=== PATIENT | male | born 1975 | race Caucasian/White ===

== ENCOUNTER 2016-11-09 17:12 | Emergency (ER) | payer BC, OTHER ==
[2016-11-09] MEDS ORDERED: DEXAMETHASONE 10 MG/ML VIAL PO STA (18:26)
[2016-11-09] MEDS ORDERED: DEXAMETHASONE 10 MG/ML VIAL ONE (18:30)
== END 2016-11-09 19:19 | disposition home or self-care (01) ==
DX: J02.9 Acute pharyngitis, unspecified (principal); J06.9 Acute upper respiratory infection, unspecified; B97.89 Other viral agents as the cause of diseases classified elsewhere

== ENCOUNTER 2017-07-25 15:07 | Outpatient (CLI) | payer BC ==
[2017-07-25 13:24] LABS: H. PYLORI IGG ANTIBODY Negative (Negative); HPYLORI NEG QC Negative (Negative); HPYLORI POS QC POSITIVE (Positive)
[2017-07-25 14:28] LABS: ALBUMIN/GLOBULIN RATIO 1.3 (1.0-2.2); BILIRUBIN,TOTAL 0.6 mg/dL (0.2-1.0); CALCIUM 9.1 mg/dL (8.5-10.3); CREATININE 0.8 mg/dL (0.6-1.2); TOTAL PROTEIN 7.5 g/dL (6.7-8.2)
== END 2017-07-25 15:08 | disposition home or self-care (01) ==
LOC: LAB.WCP 15:07
PROVIDERS: ATTEND Family Medicine
DX: R10.9 Unspecified abdominal pain (principal)
CPT/HCPCS: 36415; 80053; 83690; 87339

== ENCOUNTER 2017-08-02 10:22 | Outpatient (CLI) | payer BC | END 2017-08-02 10:23 | disposition home or self-care (01) | LOC: LAB.WCP 10:22 | PROVIDERS: ATTEND Family Medicine | DX: R10.9 Unspecified abdominal pain (principal) | CPT/HCPCS: 36415; 80074 ==

== ENCOUNTER 2017-08-06 14:50 | Outpatient (CLI) | payer BC ==
[2017-08-06 19:16] LABS: BASOPHILS % (AUTO) 0.6 %; EOSINOPHILS # (AUTO) 0.1 10^3/uL (0.0-0.7); HCT - HEMATOCRIT 41.8 % (42.0-52.0); LYMPHOCYTES # (AUTO) 1.8 10^3/uL (1.5-3.5); LYMPHOCYTES % (AUTO) 28.9 %; MEAN CORPUSCULAR HEMOGLOBIN 29.5 pg (27.0-31.0); MEAN CORPUSCULAR HGB CONC 33.6 g/dL (32.0-36.0); MEAN CORPUSCULAR VOLUME 87.9 fL (80.0-94.0); MEAN PLATELET VOLUME 8.6 fL (7.4-11.4); MONOCYTES # (AUTO) 0.6 10^3/uL (0.0-1.0); MONOCYTES % (AUTO) 9.5 %; NEUTROPHILS # (AUTO) 3.7 10^3/uL (1.5-6.6); NUCLEATED RED BLOOD CELLS AUTO 0.1 /100WBC; RED BLOOD COUNT 4.76 10^6/uL (4.70-6.10); RED CELL DISTRIBUTION WIDTH 14.3 % (12.0-15.0); UNCORRECTED WHITE BLOOD COUNT 6.3 x10^3/uL; WHITE BLOOD COUNT 6.3 x10^3/uL (4.8-10.8)
[2017-08-06 19:35] LABS: THYROID STIMULATING HORMONE 1.21 uIU/mL (0.34-5.60)
[2017-08-06 19:46] LABS: FOLATE 20.03 ng/mL (5.90 - >24.8)
== END 2017-08-06 14:51 | disposition home or self-care (01) ==
LOC: LAB.WCP 14:50
PROVIDERS: ATTEND Family Medicine
DX: R10.13 Epigastric pain (principal)
CPT/HCPCS: 36415; 82607; 82746; 83630; 84443; 85025; 87045; 87046; 87493

== ENCOUNTER 2021-04-18 08:00 | Outpatient (CLI) | payer BC ==
[2021-04-18 17:56] LABS: BASOPHILS % (AUTO) 0.5 %; EOSINOPHILS # (AUTO) 0.1 10^3/uL (0.0-0.7); EOSINOPHILS % (AUTO) 1.5 %; HCT - HEMATOCRIT 44.5 % (42.0-52.0); HGB - HEMOGLOBIN 14.4 g/dL (14.0-18.0); LYMPHOCYTES # (AUTO) 2.8 10^3/uL (1.5-3.5); MEAN CORPUSCULAR HEMOGLOBIN 29.1 pg (27.0-31.0); MEAN CORPUSCULAR HGB CONC 32.4 g/dL (32.0-36.0); MEAN CORPUSCULAR VOLUME 90.1 fL (80.0-94.0); MEAN PLATELET VOLUME 10.5 fL (7.4-11.4); MONOCYTES # (AUTO) 0.6 10^3/uL (0.0-1.0); NEUTROPHILS # (AUTO) 4.2 10^3/uL (1.5-6.6); NEUTROPHILS % (AUTO) 53.7 %; PLT - PLATELET COUNT 233 10^3/uL (130-450); RED BLOOD COUNT 4.94 10^6/uL (4.70-6.10); RED CELL DISTRIBUTION WIDTH 14.5 % (12.0-15.0); WHITE BLOOD COUNT 7.9 x10^3/uL (4.8-10.8)
[2021-04-18 18:27] LABS: THYROID STIMULATING HORMONE 1.95 uIU/mL (0.34-5.60)
[2021-04-18 18:42] LABS: ALBUMIN 4.2 g/dL (3.2-5.5); ALBUMIN/GLOBULIN RATIO 1.4 (1.0-2.2); ALKALINE PHOSPHATASE 47 IU/L (42-121); ALT ALANINE AMINOTRANSFERASE 27 IU/L (10-60); AST ASPARTATE AMINOTRANSFERASE 20 IU/L (10-42); BILIRUBIN,TOTAL 0.8 mg/dL (0.2-1.0); BUN - BLOOD UREA NITROGEN 15 mg/dL (6-20); CALCIUM 9.1 mg/dL (8.5-10.3); CARBON DIOXIDE - CO2 26 mmol/L (21-32); CHLORIDE 102 mmol/L (101-111); CHOL/HDL RATIO 2.5 (<5.0); CHOLESTEROL 191 mg/dL; CREATININE 0.7 mg/dL (0.6-1.2); GFR - MDRD 120 (>89); GLUCOSE 105 mg/dL (70-100); HDL CHOLESTEROL 75 mg/dL; LDL CHOLESTEROL,CALCULATED 91 mg/dL; LDL/HDL RATIO 1.2 (<3.6); POTASSIUM 3.9 mmol/L (3.5-5.0); SODIUM 137 mmol/L (135-145); TOTAL PROTEIN 7.2 g/dL (6.7-8.2); TRIGLYCERIDES 127 mg/dL; VLDL CHOLESTEROL 25 mg/dL
[2021-04-18 20:54] LABS: ESTIMATED AVERAGE GLUCOSE 114 mg/dL (70-100); HEMOGLOBIN A1c% 5.6 % (4.27-6.07)
== END 2021-04-18 08:01 | disposition home or self-care (01) ==
LOC: LAB.WCP 08:00
PROVIDERS: ATTEND Internal Medicine
DX: I10 Essential (primary) hypertension (principal); E66.01 Morbid (severe) obesity due to excess calories
CPT/HCPCS: 36415; 80053; 80061; 83036; 83721; 84443; 85025

== ENCOUNTER 2022-02-16 16:18 | Emergency (ER) | payer SELFPAY ==
[2022-02-16] MEDS ORDERED: LIDOCAINE 1%-EPI 1:100000 20 ML MDV SUBQ STA (16:48)
[2022-02-16] MEDS ORDERED: SODIUM CHLORIDE 0.9% 1,000 ML IV STA (17:49)
[2022-02-16] MEDS ORDERED: CLINDAMYCIN 900 MG/50 ML 50 ML IV ONE (17:50)
--- NOTE | 2022-02-16 17:52 | ED Physician Documentation ---
PD HPI WOUND RECHECK - Stated complaint Stated Complaint: R SIDE ABCESS - Chief complaint Chief Complaint: Wound - Histroy obtained from History obtained from: Patient, Family - Additional information Additional information: 46-year-old gentleman with history of hypertension and morbid obesity presents for the evaluation of an abscess on the right side of his chest wall. Started about 3 days ago with relatively rapid growth. No fevers. Pain is significant. Last p.o. intake 1:30 PM today. Review of Systems Ten Systems: 10 systems reviewed and negative Constitutional: denies: Fever, Chills, Myalgias Cardiac: denies: Palpitations Respiratory: denies: Dyspnea, Cough PD PAST MEDICAL HISTORY - Past Medical History Past Medical History: Yes Cardiovascular: Hypertension - Past Surgical History Past Surgical History: No - Present Medications Home Medications: Ambulatory Orders Medication Instructions Recorded Confirmed Cetirizine HCl/Pseudoephedrine 1 each PO BID PRN #30 tab.er.12h 11/09/16 [Zyrtec-D Tablet] Ibuprofen 800 mg PO TID 11/09/16 11/09/16 Ibuprofen [Motrin] 800 mg PO Q8H PRN #30 tablet 11/09/16 - Allergies Allergies/Adverse Reactions: Allergies Allergy/AdvReac Type Severity Reaction Status Date / Time No Known Drug Allergies Allergy Verified 02/16/22 16:40 - Social History Does the pt smoke?: No Smoking Status: Never smoker PD ED PE NORMAL - Vitals Vital signs reviewed: Yes - General General: Alert and oriented X 3, Other - HEENT HEENT: PERRL, EOMI, Pharynx benign - Neck Neck: Supple, no meningeal sign, No bony TTP - Cardiac Cardiac: RRR, No murmur - Respiratory Respiratory: No respiratory distress, Clear bilaterally - Abdomen Abdomen: Normal bowel sounds, Soft, Non tender - Back Back: No CVA TTP, No spinal TTP - Derm Derm: Other (V large (10+ cm R mid chest wall abscess) w cellulitis) - Neuro Neuro: Alert and oriented X 3, Normal speech Results - Vitals Vitals: Vital Signs - 24 hr 02/16/22 02/16/22 02/16/22 16:37 19:27 20:30 Temperature 36.4 C L Heart Rate 108 H 95 87 Respiratory 20 17 Rate Blood Pressure 124/70 O2 Saturation 93 97 Oxygen O2 Source Room air - Labs Labs: Microbiology 02/16/22 19:00 Wound Culture - Preliminary Abscess Laboratory Tests 02/16/22 02/16/22 02/16/22 18:05 18:05 19:10 WBC 11.7 H RBC 4.89 Hgb 14.7 Hct 43.9 MCV 89.8 MCH 30.1 MCHC 33.5 RDW 13.7 Plt Count 242 MPV 9.5 Neut # (Auto) 8.3 H Lymph # (Auto) 2.4 Craig # (Auto) 0.8 Eos # (Auto) 0.1 Baso # (Auto) 0.1 Absolute Nucleated RBC 0.00 Nucleated RBC % 0.0 Sodium 137 Potassium 4.3 Chloride 100 L Carbon Dioxide 26 Anion Gap 11.0 BUN 16 Creatinine 0.9 Estimated GFR (MDRD) 90 Glucose 109 H Lactic Acid 0.9 Calcium 9.5 SARS-CoV-2 (PCR) 02/16/22 19:24 WBC RBC Hgb Hct MCV MCH MCHC RDW Plt Count MPV Neut # (Auto) Lymph # (Auto) Craig # (Auto) Eos # (Auto) Baso # (Auto) Absolute Nucleated RBC Nucleated RBC % Sodium Potassium Chloride Carbon Dioxide Anion Gap BUN Creatinine Estimated GFR (MDRD) Glucose Lactic Acid Calcium SARS-CoV-2 (PCR) NOT DETECTED - Rads (name of study) CT of the chest with IV contrast Radiology: EMP read contemporaneously (Very limited study demonstrating partial inclusion of right chest wall abscess fluid and gas) Procedures - Abscess I&D (location) Right chest wall Preparation: Lidocaine 1%, With epi Incision: Incised with scalpel, Purulent drainage, Loculations broken, Culture obtained Other: Pt tolerated well, Dressing applied, Antibiotic prescribed PD MEDICAL DECISION MAKING - ED course ED course: 46-year-old gentleman with morbid obesity and hypertension presents with a right chest wall infection with significant cellulitis. He is afebrile and well- appearing. Given his size, [employer] came down and did a procedural sedation while I did an I&D. Noting that the operating room here is closed due to staffing issues for the next few days. On probing, the abscess was too deep to get to the bottom of it with hemostats or the culture swab, suggesting an abscess cavity at least 10 cm. There was no resistance to probing with this. This is concerning for a necrotizing soft tissue infection. He had already received some IV clindamycin at this point but antibiotic choice was broadened for NSTI and added Zosyn and vancomycin and will be sent for a CT of the chest. The CT of the chest to my eye is quite limited given his size but in the interim I did speak with the general surgeon at [place], Dr. Lamb and subsequently ED attending Dr. Edyta Mars who accept him via the [place] ED for further evaluation and treatment. Departure - Departure Disposition: 02 Transfer Acute Care Hosp Clinical Impression: Chest wall abscess, Morbid obesity with BMI of 60.0-69.9, adult Condition: Serious
[2022-02-16 18:10] LABS: BASOPHILS # (AUTO) 0.1 10^3/uL (0.0-0.1); BASOPHILS % (AUTO) 0.4 %; EOSINOPHILS # (AUTO) 0.1 10^3/uL (0.0-0.7); EOSINOPHILS % (AUTO) 0.5 %; HCT - HEMATOCRIT 43.9 % (42.0-52.0); HGB - HEMOGLOBIN 14.7 g/dL (14.0-18.0); LYMPHOCYTES # (AUTO) 2.4 10^3/uL (1.5-3.5); LYMPHOCYTES % (AUTO) 20.3 %; MEAN CORPUSCULAR HEMOGLOBIN 30.1 pg (27.0-31.0); MEAN CORPUSCULAR HGB CONC 33.5 g/dL (32.0-36.0); MEAN CORPUSCULAR VOLUME 89.8 fL (80.0-94.0); MEAN PLATELET VOLUME 9.5 fL (7.4-11.4); MONOCYTES # (AUTO) 0.8 10^3/uL (0.0-1.0); MONOCYTES % (AUTO) 7.2 %; NEUTROPHILS # (AUTO) 8.3 10^3/uL (1.5-6.6); PLT - PLATELET COUNT 242 10^3/uL (130-450); RED BLOOD COUNT 4.89 10^6/uL (4.70-6.10); RED CELL DISTRIBUTION WIDTH 13.7 % (12.0-15.0); WHITE BLOOD COUNT 11.7 x10^3/uL (4.8-10.8)
[2022-02-16 18:19] LABS: CALCIUM 9.5 mg/dL (8.5-10.3); CREATININE 0.9 mg/dL (0.6-1.2); POTASSIUM 4.3 mmol/L (3.5-5.0)
[2022-02-16] MEDS ORDERED: MIDAZOLAM 2 MG/2 ML VIAL ONE (18:35)
[2022-02-16] MEDS ORDERED: KETAMINE 500 MG/10 ML VIAL ONE (18:36)
[2022-02-16] MEDS ORDERED: SODIUM CHLORIDE 0.9% 10 ML VIAL IVP ONE (18:36)
[2022-02-16] MEDS ORDERED: GLYCOPYRROLATE 1 MG/5 ML VIAL ONE (18:36)
[2022-02-16] MEDS ORDERED: PIPERACILLIN/TAZOBACTAM 4.5 GM in SODIUM CHLORIDE 0.9% MINIBAG 100 ML IV STA (18:57)
[2022-02-16] MEDS ORDERED: VANCOMYCIN INJ 2 GM in SODIUM CHLORIDE 0.9% 500 ML IV STA (18:57)
--- NOTE | 2022-02-16 19:14 | ANESTHESIA PROCEDURE NOTE ---
Diagnosis: R chest wall abcess Procedure: R chest wall abcess drainage under MAC local Consent for Procedure(s) Verified and Reviewed: Yes Height and Weight: Height 5 ft 11 in Weight (kg) 224.075 kg Body Mass Index 68.8 Vital Signs: Temp Pulse Resp BP Pulse Ox 36.4 C L 108 H 20 124/70 93 02/16/22 16:37 02/16/22 16:37 02/16/22 16:37 02/16/22 16:37 02/16/22 16:37 Allergies No Known Drug Allergies Allergy (Verified 02/16/22 16:40) Requesting Provider: Alessio Location: ER bed7 ASA classification: 3-Severe systemic disease Is this case an emergency?: Yes Anes. Monitoring and Equipment: Non-invasive BP, Pulse oximetery Anes. Procedure Start Time: 18:40 Anes. Procedure Stop Time: 18:55 Procedure Notes: Pt to sitting with HOB 45 degrees. O2 mask with ETCO2 applied. VSS, pulse ox 3 lead tele. Versed 2mg. IV infiltration@L AC. New IV placed at R wrist. 0.4mg Glycopyrulate IV, Ketamine 40 mg. Procedure start. Additional Ketamine dose of 20mg IV x2 given for remainder of I&D. Pt tolerated procedure. Alert to place, time, and situation at end anesthesia.
[2022-02-16] MEDS ORDERED: IOPAMIDOL-300 100 ML VIAL ONE (19:20)
[2022-02-16] MEDS ORDERED: VANCOMYCIN 1 GM VIAL ONE (19:26)
[2022-02-16] MEDS ORDERED: IOPAMIDOL-300 100 ML VIAL IVP ONE (20:31)
--- NOTE | 2022-02-16 20:51 | CT Report ---
PROCEDURE: CHEST W INDICATIONS: R chest wall infection, eval NSTI CONTRAST: IV CONTRAST: Isovue 300 ml: 100 PO CONTRAST: *NO PO CONTRAST TECHNIQUE: After the administration of intravenous contrast, 1 mm axial images were acquired from the pulmonary apices through the posterior costophrenic angles. Axial 5 mm soft tissue kernel reconstructions were performed as well as 8 mm axial MIP and coronal and sagittal 5 mm reformations. For radiation dose reduction, the following was used: automated exposure control, adjustment of mA and/or kV according to patient size. COMPARISON: None. FINDINGS: Image quality: Evaluation limited by body habitus. Lungs and pleura: There is mild dependent atelectasis. No acute consolidation. No pleural effusions o r pneumothorax. The trachea and central airways appear patent. Mediastinum: Heart size is normal. No pericardial effusion. No mediastinal or hilar adenopathy by size criteria. Thoracic aorta and central pulmonary arteries are normal in size. Esophagus is tamie l in caliber. No hiatal hernia. Bones and chest wall: The left chest is incompletely included on the current study due to body habit us. The far lateral right chest wall was also not fully included. There is subcutaneous fat stranding and skin thickening partially visualized far laterally in the right chest wall with a loculated curv ilinear subcutaneous collection containing gas and fluid partially visualized. The collection measure s approximately 3.2 x 1.1 x 0.8 cm where visualized. No suspicious bony lesions. No vertebral body compression fractures. No axillary or supraclavicular adenopathy by size criteria. The thyroid demonstrates no discrete nodules. Abdomen: Visualized upper abdominal solid organs appear normal. Upper abdominal bowel loops are nor mal in caliber. IMPRESSION: 1. Limited study due to patient's body habitus with incomplete inclusion of the chest wall. The right chest wall demonstrates subcutaneous fat stranding and skin thickening laterally likely correspondin g to patient's reported history of chest wall infection. A small curvilinear subcutaneous collection containing fluid and gas is partially visualized consistent with a small abscess. 2. No acute consolidation or other evidence of pneumonia in the lungs. Reviewed by: Donte Hankins MD on 02/16/2022 8:49 PM PDT Approved by: Donte Hankins MD on 02/16/2022 8:49 PM PDT Station ID: [id number]
[2022-02-16] MEDS ORDERED: MORPHINE 2 MG/ML CARPUJECT IVP PRN (21:55)
[2022-02-16] MEDS ORDERED: HYDROmorphone 1 MG/ML CARPUJECT IVP STA (21:56)
[2022-02-16 21:58] VITALS: BP 139/67
[2022-02-16] MEDS ORDERED: DEXTROSE 5%-LACTATED RINGERS 1,000 ML IV SCH (22:00)
[2022-02-17] MEDS ORDERED: PANTOPRAZOLE 40 MG VIAL IVP SCH (09:00)
== END 2022-02-16 23:13 | disposition short-term general hospital (02) ==
LOC: ED 16:18
DX: L02.213 Cutaneous abscess of chest wall (principal); E66.01 Morbid (severe) obesity due to excess calories; Z68.44 Body mass index [BMI] 60.0-69.9, adult; I10 Essential (primary) hypertension
CPT/HCPCS: 10060; 36415; 71260; 80048; 83605; 85025; 87040; 87070; 87205; 87635; 96365; 96366; 96368; 96375; 99284; 99285; J1170; J3370; Q9967

== ENCOUNTER 2023-01-10 13:47 | Emergency (ER) | payer MEDICAID ==
--- NOTE | 2023-01-10 13:58 | ED Physician Documentation ---
PD HPI HEENT - Stated complaint Stated Complaint: SOA, DIZZINESS - Chief complaint Chief Complaint: Resp - History obtained from History obtained from: Patient - History of Present Illness Timing - onset: How many weeks ago (several) Timing - duration: Weeks Location: Sinuses, Throat, Other (cough and wheezing/dyspnea.) Improves: No: Medication (OTC cough meds) Associated symptoms: Congestion, Headache (frontal), Cough. No: Fever, Unable to swallow Similar symptoms before: Has not had sx before, Other (he and spouse with smilar symptoms for few weeks. They are concerned about black mold growing on buck/ceiling corners. Had landlord look at it. They heat with electric b aseboard, without any CO exposures at home.) Review of Systems Constitutional: denies: Fever, Chills Nose: reports: Rhinorrhea / runny nose, Sinus pressure / pain Throat: denies: Swollen tonsils Cardiac: denies: Chest pain / pressure, Palpitations, Pedal edema, Calf pain Respiratory: reports: Dyspnea, Cough, Wheezing Skin: reports: Rash (some hypekeratotic skin behind ears and on eyebrows.). denies: Lesions PD PAST MEDICAL HISTORY - Past Medical History Cardiovascular: Hypertension Endocrine/Autoimmune: None HEENT: None - Past Surgical History Past Surgical History: No - Present Medications Home Medications: Ambulatory Orders Medication Instructions Recorded Confirmed Cetirizine HCl/Pseudoephedrine 1 each PO BID PRN #30 tab.er.12h 11/09/16 [Zyrtec-D Tablet] Ibuprofen 800 mg PO TID 11/09/16 11/09/16 Ibuprofen [Motrin] 800 mg PO Q8H PRN #30 tablet 11/09/16 Albuterol Sulf [Ventolin Hfa 3 puffs INH QID 10 Days #1 each 01/10/23 Inhaler] Amoxicillin 500 mg PO TID #21 cap 01/10/23 Cetirizine [ZyrTEC] 10 mg PO BID #20 tablet 01/10/23 dexAMETHasone [Decadron] 4 mg PO DAILY #5 tablet 01/10/23 - Allergies Allergies/Adverse Reactions: Allergies Allergy/AdvReac Type Severity Reaction Status Date / Time No Known Drug Allergies Allergy Verified 01/10/23 13:51 - Social History Does the pt smoke?: No Smoking Status: Never smoker PD ED PE NORMAL - Vitals Vital signs reviewed: Yes - General General: Alert and oriented X 3, Well developed/nourished - HEENT HEENT: Ears normal (TMs anyway. There is some scaly white skin in creases behind ears c/w eczema type condition. ), Moist mucous membranes, Pharynx benign - Neck Neck: Supple, no meningeal sign, No adenopathy - Cardiac Cardiac: RRR, No murmur - Respiratory Respiratory: Clear bilaterally - Derm Derm: Normal color, Warm and dry Results - Vitals Vitals: Vital Signs - 24 hr 01/10/23 01/10/23 01/10/23 13:51 14:58 15:49 Temperature 36.5 C Heart Rate 114 H 78 98 Respiratory 24 17 24 Rate Blood Pressure 170/80 H 125/74 O2 Saturation 96 95 Oxygen O2 Source Room air - Rads (name of study) chest xray Relevant Findings:: Prelim report reviewed, EMP independent interpretation of test (no infiltrates nor acute process), See rad report PD Medical Decision Making - ED course Complexity details: considered differential (he and his spouse are concerned about "black mold" growing in their house, and is seen on buck/etc. I told him that I am not aware of valid blood tests to evaluate for mold toxicity. It sound s like he has viral type URI and probably now some sinusitis with it. ), d/w patient Departure - Departure Disposition: 01 Home, Self Care Clinical Impression: Dyspnea, Wheezing, Sinus congestion Condition: Stable Record reviewed to determine appropriate education?: Yes Instructions: ED Dyspnea Shortness of Breath Follow-Up: Zeb Us MD [Primary Care Provider] - Prescriptions: Amoxicillin 500 mg PO TID #21 cap dexAMETHasone [Decadron] 4 mg PO DAILY #5 tablet Albuterol Sulf [Ventolin Hfa Inhaler] 3 puffs INH QID 10 Days #1 each Cetirizine [ZyrTEC] 10 mg PO BID #20 tablet Comments: Your chest x-ray is clear without any signs of pneumonia. It does sound likely that you are having allergic or irritated response to your environment with the cough, wheezing, congestion and some scaly skin in areas. By your description, there may be some infectious component to the bronchioles or sinuses as well. I would treat these with albuterol inhaler 2 to 3 puffs 4 times daily regularly for the next 7 to 10 days. Also Decadron steroid anti-inflammatory for the bronchioles and sinuses daily for 5 more days. For potential bacterial and component, amoxicillin 3 times daily for a week. Otherwise antihistamine of cetirizine can help with some of the environmental sensitivity. You will need to be in contact with your landlord regarding the mold in the house etc. I really do not have any authority over that type of situation. I sent your prescriptions to [facility] pharmacy. Discharge Date/Time: 01/10/23 15:49
[2023-01-10] MEDS ORDERED: ALBUTEROL NEB 2.5 MG/3 ML INH STA (14:15)
[2023-01-10] MEDS ORDERED: CHERRY SYRUP 10 ML UDC PO ONE (14:17)
[2023-01-10] MEDS ORDERED: DEXAMETHASONE 10 MG/ML VIAL PO STA (14:17)
--- NOTE | 2023-01-10 14:58 | XRAY Report ---
PROCEDURE: Chest 1 View X-Ray INDICATIONS: cough and dyspnea TECHNIQUE: One view of the chest was acquired. COMPARISON: Chest CT 02/16/2022, chest x-ray 11/09/2016 FINDINGS: Surgical changes and devices: None. Lungs and pleura: No pleural effusions or pneumothorax. Lungs are clear. Mediastinum: Mediastinal contours appear normal. Heart size is enlarged. Bones and chest wall: No suspicious bony lesions. Overlying soft tissues appear unremarkable. IMPRESSION: No acute pulmonary process. Reviewed by: Aurora Chaidez MD on 01/10/2023 2:57 PM PDT Approved by: Aurora Chaidez MD on 01/10/2023 2:57 PM PDT Station ID: [id number]
[2023-01-10] MEDS ORDERED: AMOXICILLIN 250 MG CAPSULE PO STA (15:15)
[2023-01-10 15:50] VITALS: BP 125/74
== END 2023-01-10 15:49 | disposition home or self-care (01) ==
LOC: ED 13:47
DX: R06.2 Wheezing (principal); R06.00 Dyspnea, unspecified; R09.81 Nasal congestion; I10 Essential (primary) hypertension
CPT/HCPCS: 71045; 94640; 99283; 99284; A9270

== ENCOUNTER 2023-03-22 09:00 | Outpatient (CLI) | payer MEDICAID ==
--- NOTE | 2023-03-22 12:09 | XRAY Report ---
PROCEDURE: Tib/Fib RT, x-ray INDICATIONS: CONTUSION OF THE RIGHT LOWER LEG TECHNIQUE: 2 views of the tibia and fibula were acquired. COMPARISON: None. FINDINGS: Bones: No fractures or dislocations. No suspicious bony lesions. Degenerative arthritic changes n oted at the knee with marginal osteophytes Soft tissues: No suspicious soft tissue calcifications or masses. IMPRESSION: Degenerative osteoarthritis of the knee. No fracture or subluxation. Reviewed by: Andre Reynolds MD on 03/22/2023 11:08 AM MARIE Approved by: Andre Reynolds MD on 03/22/2023 11:08 AM MARIE Station ID: [id number]
== END 2023-03-22 09:15 | disposition home or self-care (01) ==
LOC: DI.N 09:00
PROVIDERS: ATTEND Family Medicine
DX: M17.11 Unilateral primary osteoarthritis, right knee (principal); S80.11XA Contusion of right lower leg, initial encounter

== ENCOUNTER 2023-03-22 10:05 | Outpatient (CLI) | payer MEDICAID ==
[2023-03-22 17:37] LABS: BASOPHILS # (AUTO) 0.1 10^3/uL (0.0-0.1); BASOPHILS % (AUTO) 0.6 %; EOSINOPHILS # (AUTO) 0.1 10^3/uL (0.0-0.7); EOSINOPHILS % (AUTO) 1.4 %; HGB - HEMOGLOBIN 13.8 g/dL (14.0-18.0); LYMPHOCYTES # (AUTO) 2.2 10^3/uL (1.5-3.5); LYMPHOCYTES % (AUTO) 25.1 %; MEAN CORPUSCULAR HEMOGLOBIN 29.1 pg (27.0-31.0); MEAN CORPUSCULAR HGB CONC 31.4 g/dL (32.0-36.0); MEAN CORPUSCULAR VOLUME 92.8 fL (80.0-94.0); MEAN PLATELET VOLUME 10.3 fL (7.4-11.4); MONOCYTES # (AUTO) 0.5 10^3/uL (0.0-1.0); MONOCYTES % (AUTO) 5.9 %; NEUTROPHILS # (AUTO) 5.8 10^3/uL (1.5-6.6); NEUTROPHILS % (AUTO) 66.4 %; PLT - PLATELET COUNT 231 10^3/uL (130-450); RED BLOOD COUNT 4.74 10^6/uL (4.70-6.10); RED CELL DISTRIBUTION WIDTH 14.4 % (12.0-15.0); WHITE BLOOD COUNT 8.8 x10^3/uL (4.8-10.8)
[2023-03-22 17:54] LABS: ESTIMATED AVERAGE GLUCOSE 111 mg/dL (70-100); HEMOGLOBIN A1c% 5.5 % (4.27-6.07)
[2023-03-22 17:59] LABS: ALBUMIN/GLOBULIN RATIO 1.3 (1.0-2.2); ALKALINE PHOSPHATASE 55 IU/L (42-121); ALT ALANINE AMINOTRANSFERASE 36 IU/L (10-60); AST ASPARTATE AMINOTRANSFERASE 24 IU/L (10-42); BILIRUBIN,TOTAL 0.6 mg/dL (0.2-1.0); BUN - BLOOD UREA NITROGEN 12 mg/dL (6-20); CALCIUM 8.9 mg/dL (8.5-10.3); CARBON DIOXIDE - CO2 29 mmol/L (21-32); CHLORIDE 104 mmol/L (101-111); CHOL/HDL RATIO 2.6 (<5.0); CHOLESTEROL 209 mg/dL; CREATININE 0.8 mg/dL (0.6-1.2); GFR - MDRD 103 (>89); GLUCOSE 106 mg/dL (70-100); HDL CHOLESTEROL 79 mg/dL; LDL CHOLESTEROL,CALCULATED 113 mg/dL; LDL/HDL RATIO 1.4 (<3.6); POTASSIUM 4.4 mmol/L (3.5-5.0); SODIUM 142 mmol/L (135-145); TOTAL PROTEIN 7.2 g/dL (6.7-8.2); TRIGLYCERIDES 86 mg/dL; VLDL CHOLESTEROL 17 mg/dL
[2023-03-22 18:01] LABS: THYROID STIMULATING HORMONE 1.91 uIU/mL (0.34-5.60)
== END 2023-03-22 10:06 | disposition home or self-care (01) ==
LOC: LAB.N 10:05
PROVIDERS: ATTEND Family Medicine
DX: I10 Essential (primary) hypertension (principal); M23.92 Unspecified internal derangement of left knee; M25.562 Pain in left knee; E66.01 Morbid (severe) obesity due to excess calories
CPT/HCPCS: 36415; 80053; 80061; 83036; 83721; 84443; 85025